=== PATIENT | female | born 1985 | race Caucasian/White ===

== ENCOUNTER 2024-07-01 12:55 | Outpatient (AMB) | payer OTHER, SELFPAY ==
--- NOTE | 2024-07-01 13:08 | A.OFFPC_ITS ---
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 Intake Note: New patient visit Medical Technologist Chief Required: No Allergies No Known Allergies Allergy (Verified 07/01/24 13:09) Tobacco use date assessed: 07/01/24 Dental Screening Dental Screen Date: 07/01/24 Did you have a dental visit in the last 12 months?: Yes Did you have a dental problem in the last 6 months where you did not have access to dental care?: No Was dental information given to patient?: Patient has dentist HPI HPI Comments History of Present Illness Details The patient is a 40 year old female with a past medical history of thyroid nodule, head/neck LN presenting to [facility] care. Has not seen primary care in years. Previously with Dr Clark in [place]. Has noticed some lymphadenopathy in the neck-both anterior and posterior for the past year. Saw ENT out of pocket in [place]. Had MRI neck. +thyroid nodule. Thyroid biopsy. 3.5 cm nodule. Benign. The lymph nodes were not visible/benign. TSH and TPO ab, CBC, CMP were ok. She has had increasingly irregular menses. Says LH, estradiol were normal. Needs bottle filler. Also notes increased acne, hot flashes. Headaches infrequent. Haven't changed. +allergies. Had left dental implant. Joint pain in the hands. ?Lyme IgM was + and was treated with 3 weeks of doxycycline. IgG normal. Needs referral to bottle filler. Mammogram 01/2024 ROS see HPI PHYSICAL EXAM: GENERAL: Alert and oriented x 3. NAD EYES: EOMI. Anicteric. HENT: Moist mucous membranes. +clear middle ear effusions b/l. palpable posterior cervical right nodes. Some scalp dryness not irritated. No nevi etc noted on the head. Scattered nevi upper back. Heterogenous thyroid. LUNGS: Clear to auscultation bilaterally. CARDIOVASCULAR: Regular rate and rhythm. ABDOMEN: Soft, non-tender +bs EXTREMITIES: No edema. Non-tender. SKIN: No rashes or lesions. Warm. NEUROLOGIC: No focal neurological deficits. CN II-XII grossly intact PSYCHIATRIC: Cooperative. Appropriate mood and affect [facility] Surgical History Hx of LASIK History of augmentation mammoplasty H/O wisdom tooth extraction Family History Father Hyperlipidemia HTN (hypertension) Paternal Grandmother Macular degeneration Diabetes Paternal Grandfather Diabetes Other Substance abuse Social History Housing: House Alcohol intake: current Patient Tobacco Use Status: Never used Tobacco e-Cigarette/Vaping Use: Never Used service: No Current occupational status: employed Current occupation: Physician internet marketing assistant Current occupational exposures/hazards: No Cognitive needs: No Hearing needs: No Vision needs: No Questionnaire PHQ-9 Over the last 2 weeks, how often have you been bothered by any of the following problems? 1. Little interest or pleasure in doing things: not at all 2. Feeling down, depressed, or hopeless: not at all 3. Trouble falling or staying asleep, or sleeping too much: not at all 4. Feeling tired or having little energy: more than half the days 5. Poor appetite or overeating: not at all 6. Feeling bad about yourself - or that you are a failure or have let yourself or your family down: not at all 7. Trouble concentrating on things, such as reading the newspaper or watching television: not at all 8. Moving or speaking so slowly that other people could have noticed. Or the opposite - being so fidgety or restless that you have been moving around a lot more than usual: not at all 9. Thoughts that you would be better off or of hurting yourself in some way: not at all Total score: 2 Depression Screening Interpretation: Negative Depression Screening Done: Yes 25560 - PHQ-9 Billing: Yes Source: Developed by Drs. Jean Menendez, Pearl Kirkland, Hector Kenny and colleagues, with an educational aquilino from [employer]. Thrive Questionnaire Date Thrive assessed: 06/28/24 I am a: Patient What is your living situation today?: I have a steady place to live Within the past 12 months, did the food you bought not last and you didn't have the money to get more?: Never true Within the past 12 months, did you worry whether your food would run out before you got money to buy more?: Never true Do you have trouble paying for medicines?: No Do you have trouble getting transportation to medical appointments?: No Do you have trouble paying your heating and electricity bill?: No Do you have trouble taking care of your child, family member or friend?: No Do you have trouble with day-to-day activities such as bathing, preparing meals, shopping, managing finances, etc.?: No Are you currently unemployed and looking for a job?: No Are you interested in more education?: No Please select the resources that you would like help with: None Currently or been in a relationship where the following occur: No concerns reported THRIVE Score: 0 AUDIT C Alcohol Use Questionnaire (AUDIT-C) 1. How often do you have a drink containing alcohol?: Monthly or less 2. How many drinks containing alcohol do you have on a typical day when you are drinking?: 1 or 2 3. How often do you have six or more drinks on one occasion?: Never Total Score: 1 BENTON-7 AMB Questionnaire BENTON-7 Date BENTON - 7 assessed: 07/01/24 Feeling nervous, anxious, or on edge: 0 = Not at all Not being able to stop or control worryin = Not at all Worrying too much about different things: 0 = Not at all Trouble relaxin = Not at all Being so restless that it is hard to sit still: 0 = Not at all Becoming easily annoyed or irritable: 0 = Not at all Feeling afraid as if something awful might happen: 0 = Not at all Total BENTON-7 score (0-4 normal; 5-9 mild; 10-14 moderate; 15-21 severe): 0 Source: Developed by Drs. Jean Menendez, Pearl Kirkland, Hector Kenny and colleagues, with an educational aquilino from [employer]. BENTON-7 Assessment Billing BENTON-7 Assessment Tool: BENTON-7 Assessment 11909 Physical exam (Primary Care) Vital Signs: Last Vital Signs Pulse 71 07/01/24 13:18 Resp 12 07/01/24 13:18 BP 108/74 07/01/24 13:18 Pulse Ox 98 07/01/24 13:18 Oxygen Delivery Method Room Air 07/01/24 13:18 BMI result Body Mass Index 24.5 Tobacco/Smoking Status: Tobacco use Status Tobacco use date assessed 07/01/24 07/01/24 13:21 Patient Tobacco Use Status Never used Tobacco 07/01/24 13:27 e-Cigarette/Vaping Use Never Used 07/01/24 13:21 PHQ-9: PHQ-9 Score PHQ-9: Total score 2 07/01/24 13:27 Depression Screening Interpretation: Negative Thrive Assessment: Date of Thrive Assessment Date Thrive assessed 06/28/24 07/01/24 13:21 Currently or been in a relationship where the following occur: No concerns reported Coding Level of Care Code New Pt Level 4 (88133) Complex EM visit Add On G2211 Diagnoses Head and neck lymphadenopathy R59.1 Hormone disturbance E34.9 Establishing care with new doctor, encounter for Z76.89 Additional Codes BENTON-7 Assessment Billing - BENTON-7 Assessment Tool: BENTON-7 Assessment 90246 ([id number]) PHQ-9 - 32061 - PHQ-9 Billing: Yes ([id number]) Assessment & Plan Assessment & Plan (1) Head and neck lymphadenopathy: Code(s): R59.1 - Generalized enlarged lymph nodes Category: Medical Plan: Repeat u/s. referral to ENT. Will refer to endocrine given constellation of symptoms and patient desire to get further testing. (2) Hormone disturbance: Code(s): E34.9 - Endocrine disorder, unspecified Category: Medical Plan: see above (3) Establishing care with new doctor, encounter for: Code(s): Z76.89 - Persons encountering health services in other specified circumstances Plan: Past medical, surgical, social and family history reviewed. 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
[2024-07-01 13:18] VITALS: BP 108/74; PULSE 71; RESP 12; O2SAT 98; BMI 24.5
== END 2024-07-01 13:59 | disposition home or self-care (01) ==
PROVIDERS: Visit Provider Internal Medicine
DX: R59.1 Generalized enlarged lymph nodes (principal); E34.9 Endocrine disorder, unspecified; Z76.89 Persons encountering health services in other specified circumstances

== ENCOUNTER → 2024-07-01 12:55 | Outpatient (BNVA) | payer OTHER, SELFPAY | PROVIDERS: Visit Provider Internal Medicine | DX: Z76.89 Persons encountering health services in other specified circumstances (principal); R59.1 Generalized enlarged lymph nodes; E34.9 Endocrine disorder, unspecified; E04.1 Nontoxic single thyroid nodule | CPT/HCPCS: 96127 ==

== ENCOUNTER 2024-07-17 15:23 | Outpatient (REF) | payer OTHER, SELFPAY ==
--- NOTE | ~2024-07-17 | US_ITS ---
EXAMINATION: US THYROID CLINICAL INFORMATION: Nontoxic single thyroid nodule. COMPARISON: None available. TECHNIQUE: Linear transducer grayscale and color Doppler examination with attention to the region of the thyroid. FINDINGS: SIZE: Measurements of the thyroid lobes and nodules are given in sagittal, anteroposterior and transverse dimensions respectively. Right Thyroid Lobe: 6.0 x 2.9 x 2.4 cm, volume 22 mL. Parenchyma: The gland echotexture is homogeneous. Thyroid vascularity is normal. Left Thyroid Lobe: 5.2 x 2.1 x 2.2 cm, volume 13 mL. Parenchyma: The gland echotexture is homogeneous. Thyroid vascularity is normal. Isthmus: 0.13 cm in maximum AP dimension. Estimated total number of nodules greater than or equal to 1 cm: 2. 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 Location: Right mid/inferior. Size: 3.3 x 3.0 x 2.5 cm, volume 13 mL. Nodule characteristics: Composition: Cystic(0). Echogenicity: Cannot be determined (1). Shape: Taller than wide (3). Margins: Smooth (0). Echogenic Foci: None (0). ACR TI-RADS total points: 3 ACR TI-RADS category: 3 2. Location: Left superior. Size: 0.6 x 0.4 x 0.8 cm, volume 0.105 mL. Nodule characteristics: Composition: Solid (2). Echogenicity: Hypoechoic (2). Shape: Not taller than wide (0). Margins: Ill-defined (0). Echogenic Foci: None (0). ACR TI-RADS total points: 4 ACR TI-RADS category: 4 3. Location: Left mid/inferior. Size: 2.8 x 1.8 x 2.1 cm, volume 5.4 mL. Nodule characteristics: Composition: Solid/almost completely solid (2). Echogenicity: Isoechoic (1). Shape: Not taller than wide (0). Margins: Ill-defined (0). Echogenic Foci: Macrocalcifications (1). ACR TI-RADS total points: 4 ACR TI-RADS category: 4 NODES: There are no abnormal cervical lymph nodes present. US/US thyroid IMPRESSION: 1. There is a 3.3 cm TR-category 3 cystic nodule right mid to inferior gland. Follow-up recommended. 2. There is a 0.8 cm TR-category 4 nodule in the left upper gland. No follow-up recommended. 3. There is a 2.8 cm TR-category 4 nodule left mid inferior gland. FNA recommended if not already performed. 4. Remainder of the thyroid gland is normal in echotexture. ACR TI-RADS RECOMMENDATION REFERENCE: Ultrasound-guided fine-needle aspiration, followup ultrasound, no further follow up. * TR1 (0 point) and TR2 (2 points): No FNA or follow up. * TR3 (3 points): FNA if more than or equal to 2.5 cm in maximum dimension, followup ultrasound in 1, 3 and 5 years if 1.5 to 2.4 cm in maximum dimension. * TR4 (4-6 points): FNA if more than or equal to 1.5 cm in maximum dimension, followup ultrasound in 1, 2, 3 and 5 years if 1 to 1.4 cm in maximum dimension. * TR5 (more than or equal to 7 points): FNA if more than or equal to 1 cm in maximum dimension, followup ultrasound every year for 5 years if 0.5 to 0.9 cm in maximum dimension. * TR3, TR4 or TR5 nodules that are below the size threshold for followup receive no follow up. Electronically signed by: Phill Sky MD 07/22/2024 12:04 PM MATT CROW
== END 2024-07-17 15:24 | disposition home or self-care (01) ==
LOC: HO.US 15:23
PROVIDERS: PCP Internal Medicine; Visit Provider Internal Medicine
DX: E04.1 Nontoxic single thyroid nodule (principal); R59.1 Generalized enlarged lymph nodes
CPT/HCPCS: 76536

== ENCOUNTER → 2024-07-17 15:28 | Outpatient (BNV) | payer OTHER, SELFPAY | PROVIDERS: PCP Internal Medicine; Visit Provider Radiology Diagnostic Radiology | DX: E04.1 Nontoxic single thyroid nodule (principal) | CPT/HCPCS: 76536 ==

== ENCOUNTER 2024-07-22 13:07 | Outpatient (AMB) | payer OTHER, SELFPAY ==
[2024-07-22 13:25] VITALS: BP 110/78; PULSE 60; BMI 25.3
--- NOTE | 2024-07-22 13:25 | A.OFFVIS_ITS ---
Vital Signs 3 07/22/24 13:25 Height 5 ft 7 in Weight 161 lb 9.581 oz BMI 25.3 BP 110/78 Blood Pressure Location Lt brachial Position Sitting Pulse 60 Pulse Source Pulse Oximeter Intake Visit Reasons: Endocrine disorder, unspecified Intake Note: Patient present today for Endocrine disorder, unspecified. Research Phlebotomist Required: No Accompanied by: Self / Same As Patient Allergies No Known Allergies Allergy (Verified 07/22/24 13:28) Medication List - Last Reconciled 07/22/24 by Sonya Adorno MD acetaminophen (Tylenol) 325 mg PO QID PRN multivitamin 1 tab PO DAILY naproxen sodium (Flanax (naproxen)) 220 mg PO BID PRN HPI Comments Details: 39-year-old female here today for initial evaluation of irregular menstruation and also noted to have multinodular goiter. presents with no complaints of irregular periods and hair loss. No history of HTN, hyperlipidemia, prediabetes. PCOS is described as mild, moderate or severe. Menarche: 12 years and then didnt have one for 1.5 years Has always had irregular periods Preganancies : zero Sexully active with man, was on the estrogen patch a year and a half ago. Uses condoms for protection. Has used OCps before in the past which would regulate period. LMP : 08/18/2023 Before that around 08/16/2023 Was getting them every 30 days now been skipping months . First day heavier period now. Reporting intermenstrual spotting. No dysperenunia, no post coital bleeding, no fevers , no abd pain Having hot flashes over the summer 2023, subsided now. Increased acne on chin, chest and back of neck ,on tretinoin gel better controlled , being managed with PCP. Laser annette removal on arms, mustache waxed. No increased hair on belly or nipples . Hair loss on temples and diffusely thinner. Diet: Eats more protein 115 g of protein per day Exercise: Strength training 4-5 days a week, plus running a lot now. Cosmetic therapies: Laser hair removal, waxing, threading, plucking MNG Patient describes that she has been having postauricular lymphadenopathy in the right side for the past 1 year sometime in 2022. She was evaluated by ENT. Imaging did not show anything around posterior auricular lymphadenopathy but led to discovery of thyroid nodules. MRI soft tissue face/neck with and without contrast 08/17/2023 showed 2.5 X 2.7 X 3.3 cm lobulated lesion with heterogenous hyperintense T1 and T2 signals in the right thyroid lobe. The left thyroid lobe showed heterogenous signals on heterogenous enhancement containing multiple subcentimeter nodules. 09/19/2023: Ultrasound of the thyroid showed a mixed solid cystic isoechoic nodule measuring 3.4 cm in the right lower lobe, labeled as TR 2. Another 2.6 cm predominantly solid isoechoic nodule in the left mid lobe, labeled as TR 3. 10/05/2023: FNA of the left thyroid nodule with benign cytology Grahn category 2. 07/17/2024: Repeat thyroid ultrasound shows again right mid/inferior 3.3 cm cystic lesion, left superior 0.8 cm solid, hypoechoic TR 4 nodule and a left mid/inferior 2.8 cm TR 4 category solid, isoechoic nodule with macrocalcifications. Patient currently denies heat or cold intolerance, diarrhea or constipation, hair loss, palpitation, anxiety, weight changes, mood changes, low energy, changes in appearance of eyes or vision changes, tremors, increased diaphoresis or dry skin. ? Patient denies any difficulty swallowing, pain on swallowing or voice changes or difficulty breathing. Patient denies any history of childhood neck radiation. Denies having ever used lithium, amiodarone or biotin supplements. Patient denies any family history of thyroid cancer or thyroid disease. Review of systems Constitutional: no fevers, chills or weight loss HEENT: no changes in vision Cardiac: No chest pain, discomfort or palpitations. Pulmonary: No SOB GI:No abdominal pain, no nausea or vomiting, no anorexia, no blood in stool : no burning micturition, dysuria or increase in urinary frequency Physical exam General: sitting comfortably in no acute distress HEENT: normocephalic/atraumatic, palpable 0.5 cm posterior auricular right-sided lymphadenopathy Neck: supple, symmetrical, palpable 2 cm left and right nodules , no dorsocervical or supraclavicular fat pads Cardiac: normal heart sounds Pulm: normal breath sounds B/L, no added breath sounds Abd: not distended, no tenderness Extremities: no edema, no signs of myxedema US THYROID 07/17/24 CLINICAL INFORMATION: Nontoxic single thyroid nodule. COMPARISON: None available. TECHNIQUE: Linear transducer grayscale and color Doppler examination with attention to the region of the thyroid. FINDINGS: SIZE: Measurements of the thyroid lobes and nodules are given in sagittal, anteroposterior and transverse dimensions respectively. Right Thyroid Lobe: 6.0 x 2.9 x 2.4 cm, volume 22 mL. Parenchyma: The gland echotexture is homogeneous. Thyroid vascularity is normal. Left Thyroid Lobe: 5.2 x 2.1 x 2.2 cm, volume 13 mL. Parenchyma: The gland echotexture is homogeneous. Thyroid vascularity is normal. Isthmus: 0.13 cm in maximum AP dimension. Estimated total number of nodules greater than or equal to 1 cm: 2. Blint[place] Roller nodules are described as follows: 1. Location: Right mid/inferior. Size: 3.3 x 3.0 x 2.5 cm, volume 13 mL. Nodule characteristics: Composition: Cystic(0). Echogenicity: Cannot be determined (1). Shape: Taller than wide (3). Margins: Smooth (0). Echogenic Foci: None (0). ACR TI-RADS total points: 3 ACR TI-RADS category: 3 2. Location: Left superior. Size: 0.6 x 0.4 x 0.8 cm, volume 0.105 mL. Nodule characteristics: Composition: Solid (2). Echogenicity: Hypoechoic (2). Shape: Not taller than wide (0). Margins: Ill-defined (0). Echogenic Foci: None (0). ACR TI-RADS total points: 4 ACR TI-RADS category: 4 3. Location: Left mid/inferior. Size: 2.8 x 1.8 x 2.1 cm, volume 5.4 mL. Nodule characteristics: Composition: Solid/almost completely solid (2). Echogenicity: Isoechoic (1). Shape: Not taller than wide (0). Margins: Ill-defined (0). Echogenic Foci: Macrocalcifications (1). ACR TI-RADS total points: 4 ACR TI-RADS category: 4 NODES: There are no abnormal cervical lymph nodes present. US/US thyroid IMPRESSION: 1. There is a 3.3 cm TR-category 3 cystic nodule right mid to inferior gland. Follow-up recommended. 2. There is a 0.8 cm TR-category 4 nodule in the left upper gland. No follow-up recommended. 3. There is a 2.8 cm TR-category 4 nodule left mid inferior gland. FNA recommended if not already performed. 4. Remainder of the thyroid gland is normal in echotexture. [facility] Medical History (Updated 07/22/24 @ 14:14 by Sonya Adorno MD) Multinodular goiter Surgical History Hx of LASIK History of augmentation mammoplasty H/O wisdom tooth extraction Family History Father Hyperlipidemia HTN (hypertension) Paternal Grandmother Macular degeneration Diabetes Paternal Grandfather Diabetes Other Substance abuse Social History Housing: House Alcohol intake: current Patient Tobacco Use Status: Never used Tobacco e-Cigarette/Vaping Use: Never Used service: No Current occupational status: employed Current occupation: Physician certified physician assistant Current occupational exposures/hazards: No Cognitive needs: No Hearing needs: No Vision needs: No Assessment & Plan Assessment & Plan (1) Irregular menses: Code(s): N92.6 - Irregular menstruation, unspecified Category: Medical Plan: 39-year-old female who is coming in today with concerns about irregular menstrual cycles with intermenstrual spotting, along with her loss. She has had irregular menstrual periods for all of her life, says she briefly went on oral contraceptive pills as well has had an implant at some point, which would regulate her periods however then she had more regular periods over the last few years so she has been off these however recently has had worsening of menstrual cycles. She has been having your period at least every other month or every 2 months. She has also noticed some intermenstrual spotting which is new. She is pending an appointment for the OBGYN. No recent ultrasound done. I will defer that to OBGYN. She has mild hirsutism though she is not bothered by it and uses cosmetic measures such as laser therapy. She also waxes her missed. She does have bothersome acne however currently well-controlled on tretinoin therapy. She does not have any history of diabetes or hyperlipidemia, blood pressure is well-controlled, we will check an A1c and lipid panel. She most likely has lean PCOS. Since she is having a period every other month when every 2 months at least, she does not necessarily need to regulate cycles further. I did discuss importance of having a period at least every 3 months and need for going on OCP if she does not. I reviewed with the patient the implications of polycystic ovarian syndrome in terms of 1) reproductive health (increased risk of infertity, miscarriage), 2) metabolic issues (type 2 diabetes, hypertension, dyslipidemia, cardiovascular disease) and 3) hyperandrogenism (acne, hirsuitism, male pattern hair loss). We reviewed that weight loss in overweight woman can help improve these morbidities, but often woman with PCOS do need further assistance with fertility using metformin plus clomiphene or letrazole. She is not interested in at this time. We discussed lifestyle modification in detail and she is already very good about exercising regularly. We discussed 25 g of fiber per day as well as 1 g per kg protein per day. Patient maintains a high protein intake. I will obtain other blood work to rule out CAH/adrenal/ovarian tumors. Plan: -obtain testosterone, estradiol, FSH, LH, 17 hydroxyprogesterone, DHEA-S, androstenedione levels -establish care with OBGYN -follow up with me in 3 weeks to discuss results (2) Multinodular goiter: Code(s): E04.2 - Nontoxic multinodular goiter Category: Medical Plan: 39-year-old female with no family history of thyroid cancer, with no personal history of head or neck radiation who had complaints of postauricular lymphadenopathy since 2022 leading to imaging of her neck which led to discovery of bilateral thyroid nodules. MRI soft tissue face/neck with and without contrast 08/17/2023 showed 2.5 X 2.7 X 3.3 cm lobulated lesion with heterogenous hyperintense T1 and T2 signals in the right thyroid lobe. The left thyroid lobe showed heterogenous signals on heterogenous enhancement containing multiple subcentimeter nodules. 09/19/2023: Ultrasound of the thyroid showed a mixed solid cystic isoechoic nodule measuring 3.4 cm in the right lower lobe, labeled as TR 2. Another 2.6 cm predominantly solid isoechoic nodule in the left mid lobe, labeled as TR 3. 10/05/2023: FNA of the left thyroid nodule with benign cytology Grahn category 2. 07/17/2024: Repeat thyroid ultrasound shows again right mid/inferior 3.3 cm cystic lesion, left superior 0.8 cm solid, hypoechoic TR 4 nodule and a left mid/inferior 2.8 cm TR 4 category solid, isoechoic nodule with macrocalcifications. I explained that it is common to have thyroid nodules. About 95% of the time these nodules are benign. However if the nodule is > 1 cm in size or suspicious on ultrasound then a fine need aspiration biopsy is recommended. I reviewed the images of her most recent ultrasound in July 2024 myself, in the right mid/inferior 3 cm cystic lesion does not meet criteria for FNA. The left mid/inferior 2.8 cm lesion has been biopsied in September 2023 which was benign. Given this is labeled as TR 4, would need follow up in 1 year. Plan: -ordered repeat thyroid ultrasound to be done in July 2025 - follow up with the ENT with regards to the postauricular lymphadenopathy Plan I spent 45 minutes in reviewing the record, seeing the patient and documenting in the medical record. Orders: Orders 2 Adrenocorticotropic Hormone Today N92.6 - Irregular menstruation, unspecified Androstenedione Today N92.6 - Irregular menstruation, unspecified Prolactin Today L68.0 - Hirsutism, N92.6 - Irregular menstruation, unspecified Testosterone, Free/Total Today L68.0 - Hirsutism, N92.6 - Irregular menstruation, unspecified Thyroid Stimulating Hormone Today L68.0 - Hirsutism, N92.6 - Irregular menstruation, unspecified Follicle Stimulating Hormone Today N92.6 - Irregular menstruation, unspecified Lipid Panel Today N92.6 - Irregular menstruation, unspecified Hemoglobin A1c Today N92.6 - Irregular menstruation, unspecified US thyroid 1 Year E04.1 - Nontoxic single thyroid nodule Cortisol Random Today N92.6 - Irregular menstruation, unspecified DHEA Sulfate Today N92.6 - Irregular menstruation, unspecified 17 Hydroxyprogesterone Today L68.0 - Hirsutism, N92.6 - Irregular menstruation, unspecified Estradiol Ultra Sensitive Today N92.6 - Irregular menstruation, unspecified Lutenizing Hormone Today N92.6 - Irregular menstruation, unspecified Patient Instructions: Do blood work Follow up in 3 weeks to discuss results Next thyroid ultrasound will be due Jul 2025 Coding Level of Care Code New Pt Level 4 (25890) Diagnoses Irregular menses N92.6 Multinodular goiter E04.2 Time Spent (min) 45
== END 2024-07-22 14:12 | disposition home or self-care (01) ==
PROVIDERS: Visit Provider Student in an Organized Health Care Education/Training Program
DX: N92.6 Irregular menstruation, unspecified (principal); E04.2 Nontoxic multinodular goiter
CPT/HCPCS: 99204

== ENCOUNTER 2024-07-22 13:07 | Outpatient (REF) | payer OTHER, SELFPAY | END 2024-07-22 13:08 | disposition home or self-care (01) | LOC: HO.LAB 13:07 | PROVIDERS: PCP Internal Medicine; Visit Provider Student in an Organized Health Care Education/Training Program | DX: Z13.89 Encounter for screening for other disorder (principal) ==

== ENCOUNTER 2024-07-23 09:38 | Outpatient (REF) | payer OTHER, SELFPAY ==
[2024-07-23 10:21] LABS: Estimated Average Glucose 100 mg/dL; Hemoglobin A1C 100.2574 umol/L; Hemoglobin A1c % 5.1 % (<6.0); Total Hemoglobin (HGBA1C) 3160.4261 umol/L
[2024-07-23 10:54] LABS: Cortisol Random 8.2 ug/dL
[2024-07-23 10:55] LABS: Cholesterol 216 mg/dL (<200); HDL Cholesterol 69 mg/dL (>40); LDL Cholesterol Calculated 126 mg/dL (<100); Triglycerides 107 mg/dL (<150)
[2024-07-23 10:58] LABS: Thyroid Stimulating Hormone 1.37 uIU/mL (0.32-4.0)
[2024-07-24 11:03] LABS: DHEA Sulfate 64 mcg/dL (15-205)
[2024-07-24 12:29] LABS: Follicle Stimulating Hormone 3.5 mIU/mL; Lutenizing Hormone 6.6 mIU/mL; Prolactin 13.4 ng/mL
[2024-07-28 08:13] LABS: Adrenocorticotropic Hormone 8 pg/mL (6-50)
[2024-07-29 18:14] LABS: Testosterone, Free 2.8 pg/mL (0.1-6.4); Testosterone, Total 24 ng/dL (2-45)
[2024-07-29 23:49] LABS: Estradiol Ultra Sensitive 124 pg/mL
[2024-07-30 17:24] LABS: Androstenedione 74 ng/dL
[2024-07-31 13:19] LABS: VITAMIN D (1,25 OH) D3 69 pg/mL; Vit D (1,25-Dihydroxy) Total 69 pg/mL (18-72); Vitamin D (1,25 OH) D2 <8 pg/mL
== END 2024-07-23 09:39 | disposition home or self-care (01) ==
LOC: HO.LAB 09:38
PROVIDERS: PCP Internal Medicine; Visit Provider Student in an Organized Health Care Education/Training Program
DX: L68.0 Hirsutism (principal); N92.6 Irregular menstruation, unspecified; R79.89 Other specified abnormal findings of blood chemistry
CPT/HCPCS: 36415; 80061; 82024; 82157; 82533; 82627; 82652; 82670; 83001; 83002; 83036; 83498; 84146; 84402; 84403; 84443

== ENCOUNTER 2024-08-14 12:51 | Outpatient (AMB) | payer OTHER, SELFPAY ==
[2024-08-14 12:55] VITALS: BP 102/72; PULSE 75; BMI 24.1
--- NOTE | 2024-08-14 12:55 | MHC.OFFVIS ---
Vital Signs 08/14/24 12:55 Height 5 ft 7 in Weight 153 lb 10.595 oz BMI 24.1 BP 102/72 Blood Pressure Location Lt brachial Position Sitting Pulse 75 Pulse Source Pulse Oximeter Intake Visit Reasons: Endocrine disorder, unspecified Intake Note: Patient present today for Endocrine disorder, unspecified office visit. Geophysical Drafter Required: No Accompanied by: Self / Same As Patient Allergies No Known Allergies Allergy (Verified 08/14/24 12:59) HPI Comments Details: 39-year-old female here today for follow up of irregular menstruation and multinodular goiter. HPI PCOS is described as mild Menarche: 12 years and then didnt have one for 1.5 years Has always had irregular periods Preganancies : zero Sexully active with man, was on the estrogen patch a year and a half ago. Uses condoms for protection. Has used OCps before in the past which would regulate period. LMP : 07/07/2024 Before that around 05/07/2024 Was getting them every 30 days now been skipping months . First day heavier period now. Reporting intermenstrual spotting. No dysperenunia, no post coital bleeding, no fevers , no abd pain Having hot flashes over the summer 2023, subsided now. Increased acne on chin, chest and back of neck ,on tretinoin gel better controlled , being managed with PCP. Laser hair removal on arms, mustache waxed. No increased hair on belly or nipples . Hair loss on temples and diffusely thinner. Diet: Eats more protein 115 g of protein per day Exercise: Strength training 4-5 days a week, plus running a lot now. Cosmetic therapies: Laser hair removal, waxing, threading, plucking Interval history Has appointment with OBgyn on Monday Lab work 07/23/2024 showed normal A1c, elevated LDL and total cholesterol levels, normal testosterone, estradiol, FSH, LH, DHEA-S, cortisol, 17 hydroxyprogesterone and androstenedione levels. MNG Patient describes that she has been having postauricular lymphadenopathy in the right side for the past 1 year sometime in 2022. She was evaluated by ENT. Imaging did not show anything around posterior auricular lymphadenopathy but led to discovery of thyroid nodules. MRI soft tissue face/neck with and without contrast 08/17/2023 showed 2.5 X 2.7 X 3.3 cm lobulated lesion with heterogenous hyperintense T1 and T2 signals in the right thyroid lobe. The left thyroid lobe showed heterogenous signals on heterogenous enhancement containing multiple subcentimeter nodules. 09/19/2023: Ultrasound of the thyroid showed a mixed solid cystic isoechoic nodule measuring 3.4 cm in the right lower lobe, labeled as TR 2. Another 2.6 cm predominantly solid isoechoic nodule in the left mid lobe, labeled as TR 3. 10/05/2023: FNA of the left thyroid nodule with benign cytology [place] category 2. 07/17/2024: Repeat thyroid ultrasound shows again right mid/inferior 3.3 cm cystic lesion, left superior 0.8 cm solid, hypoechoic TR 4 nodule and a left mid/inferior 2.8 cm TR 4 category solid, isoechoic nodule with macrocalcifications. Patient currently denies heat or cold intolerance, diarrhea or constipation, hair loss, palpitation, anxiety, weight changes, mood changes, low energy, changes in appearance of eyes or vision changes, tremors, increased diaphoresis or dry skin. ? Patient denies any difficulty swallowing, pain on swallowing or voice changes or difficulty breathing. Patient denies any history of childhood neck radiation. Denies having ever used lithium, amiodarone or biotin supplements. Patient denies any family history of thyroid cancer or thyroid disease. Review of systems Constitutional: no fevers, chills or weight loss HEENT: no changes in vision Cardiac: No chest pain, discomfort or palpitations. Pulmonary: No SOB GI:No abdominal pain, no nausea or vomiting, no anorexia, no blood in stool : no burning micturition, dysuria or increase in urinary frequency Physical exam General: sitting comfortably in no acute distress HEENT: normocephalic/atraumatic, palpable 0.5 cm posterior auricular right-sided lymphadenopathy Neck: supple, symmetrical, palpable 2 cm left and right nodules , no dorsocervical or supraclavicular fat pads Cardiac: normal heart sounds Pulm: normal breath sounds B/L, no added breath sounds Abd: not distended, no tenderness Extremities: no edema, no signs of myxedema US THYROID 07/17/24 CLINICAL INFORMATION: Nontoxic single thyroid nodule. COMPARISON: None available. TECHNIQUE: Linear transducer grayscale and color Doppler examination with attention to the region of the thyroid. FINDINGS: SIZE: Measurements of the thyroid lobes and nodules are given in sagittal, anteroposterior and transverse dimensions respectively. Right Thyroid Lobe: 6.0 x 2.9 x 2.4 cm, volume 22 mL. Parenchyma: The gland echotexture is homogeneous. Thyroid vascularity is normal. Left Thyroid Lobe: 5.2 x 2.1 x 2.2 cm, volume 13 mL. Parenchyma: The gland echotexture is homogeneous. Thyroid vascularity is normal. Isthmus: 0.13 cm in maximum AP dimension. Estimated total number of nodules greater than or equal to 1 cm: 2. [employer] nodules are described as follows: 1. Location: Right mid/inferior. Size: 3.3 x 3.0 x 2.5 cm, volume 13 mL. Nodule characteristics: Composition: Cystic(0). Echogenicity: Cannot be determined (1). Shape: Taller than wide (3). Margins: Smooth (0). Echogenic Foci: None (0). ACR TI-RADS total points: 3 ACR TI-RADS category: 3 2. Location: Left superior. Size: 0.6 x 0.4 x 0.8 cm, volume 0.105 mL. Nodule characteristics: Composition: Solid (2). Echogenicity: Hypoechoic (2). Shape: Not taller than wide (0). Margins: Ill-defined (0). Echogenic Foci: None (0). ACR TI-RADS total points: 4 ACR TI-RADS category: 4 3. Location: Left mid/inferior. Size: 2.8 x 1.8 x 2.1 cm, volume 5.4 mL. Nodule characteristics: Composition: Solid/almost completely solid (2). Echogenicity: Isoechoic (1). Shape: Not taller than wide (0). Margins: Ill-defined (0). Echogenic Foci: Macrocalcifications (1). ACR TI-RADS total points: 4 ACR TI-RADS category: 4 NODES: There are no abnormal cervical lymph nodes present. US/US thyroid IMPRESSION: 1. There is a 3.3 cm TR-category 3 cystic nodule right mid to inferior gland. Follow-up recommended. 2. There is a 0.8 cm TR-category 4 nodule in the left upper gland. No follow-up recommended. 3. There is a 2.8 cm TR-category 4 nodule left mid inferior gland. FNA recommended if not already performed. 4. Remainder of the thyroid gland is normal in echotexture. Laboratory Tests 07/23/24 09:56 Estimat Average Glucose 100 Hemoglobin A1c % 5.1 Triglycerides 107 Cholesterol 216 H LDL Cholesterol, Calc 126 H HDL Cholesterol 69 TSH 1.37 Estradiol Ultra LCMSMS 124 FSH 3.5 Luteinizing Hormone 6.6 Prolactin 13.4 Total Testosterone 24 Fr Testosterone Dialys 2.8 Androstenedione 74 DHEA Sulfate 64 Random Cortisol 8.2 ACTH 8 17-Hydroxyprogesterone 162 PFSH Medical History (Updated 07/25/24 @ 15:10 by Liz Child MD) Multinodular goiter Surgical History Hx of LASIK History of augmentation mammoplasty H/O wisdom tooth extraction Family History Father Hyperlipidemia HTN (hypertension) Paternal Grandmother Macular degeneration Diabetes Paternal Grandfather Diabetes Other Substance abuse Social History Housing: House Alcohol intake: current Patient Tobacco Use Status: Never used Tobacco e-Cigarette/Vaping Use: Never Used service: No Current occupational status: employed Current occupation: Physician certified nursing assistant Current occupational exposures/hazards: No Cognitive needs: No Hearing needs: No Vision needs: No Physical Exam Vital Signs: Last Vital Signs Pulse 75 08/14/24 12:55 BP 102/72 08/14/24 12:55 BMI result Body Mass Index 24.1 Assessment & Plan Assessment & Plan (1) Irregular menses: Code(s): N92.6 - Irregular menstruation, unspecified Category: Medical Plan: 39-year-old female who is coming in today with concerns about irregular menstrual cycles with intermenstrual spotting, along with her loss. She has had irregular menstrual periods for all of her life, says she briefly went on oral contraceptive pills as well has had an implant at some point, which would regulate her periods however then she had more regular periods over the last few years so she has been off these however recently has had worsening of menstrual cycles. She has been having your period at least every other month or every 2 months. She has also noticed some intermenstrual spotting which is new. She is pending an appointment for the OBGYN. No recent ultrasound done. I will defer that to OBGYN. She has mild hirsutism though she is not bothered by it and uses cosmetic measures such as laser therapy. She also waxes her missed. She does have bothersome acne however currently well-controlled on tretinoin therapy. She does not have any history of diabetes o, labs from 07/23/2024 shows hyperlipidemia, blood pressure is well-controlled, I would classify her as having lean PCOS. Since she is having a period every other month when every 2 months at least, she does not necessarily need to regulate cycles further. I did discuss importance of having a period at least every 3 months and need for going on OCP if she does not. I reviewed with the patient the implications of polycystic ovarian syndrome in terms of 1) reproductive health (increased risk of infertity, miscarriage), 2) metabolic issues (type 2 diabetes, hypertension, dyslipidemia, cardiovascular disease) and 3) hyperandrogenism (acne, hirsuitism, male pattern hair loss). We reviewed that weight loss in overweight woman can help improve these morbidities, but often woman with PCOS do need further assistance with fertility using metformin plus clomiphene or letrazole. She is not interested in at this time. We discussed lifestyle modification in detail and she is already very good about exercising regularly. We discussed 25 g of fiber per day as well as 1 g per kg protein per day. Patient maintains a high protein intake. Labs from 07/23/2024 ruled out CAH/adrenal/ovarian tumors based on normal 17 hydroxyprogesterone, testosterone, estradiol, DHEA-S, androstenedione levels. Plan: -establish care with OBGYN -Lifestyle modification as mentioned above discussed (2) Multinodular goiter: Code(s): E04.2 - Nontoxic multinodular goiter Category: Medical Plan: 39-year-old female with no family history of thyroid cancer, with no personal history of head or neck radiation who had complaints of postauricular lymphadenopathy since 2022 leading to imaging of her neck which led to discovery of bilateral thyroid nodules. MRI soft tissue face/neck with and without contrast 08/17/2023 showed 2.5 X 2.7 X 3.3 cm lobulated lesion with heterogenous hyperintense T1 and T2 signals in the right thyroid lobe. The left thyroid lobe showed heterogenous signals on heterogenous enhancement containing multiple subcentimeter nodules. 09/19/2023: Ultrasound of the thyroid showed a mixed solid cystic isoechoic nodule measuring 3.4 cm in the right lower lobe, labeled as TR 2. Another 2.6 cm predominantly solid isoechoic nodule in the left mid lobe, labeled as TR 3. 10/05/2023: FNA of the left thyroid nodule with benign cytology [place] category 2. 07/17/2024: Repeat thyroid ultrasound shows again right mid/inferior 3.3 cm cystic lesion, left superior 0.8 cm solid, hypoechoic TR 4 nodule and a left mid/inferior 2.8 cm TR 4 category solid, isoechoic nodule with macrocalcifications. I explained that it is common to have thyroid nodules. About 95% of the time these nodules are benign. However if the nodule is > 1 cm in size or suspicious on ultrasound then a fine need aspiration biopsy is recommended. I reviewed the images of her most recent ultrasound in July 2024 myself, in the right mid/inferior 3 cm cystic lesion does not meet criteria for FNA. The left mid/inferior 2.8 cm lesion has been biopsied in September 2023 which was benign. Given this is labeled as TR 4, would need follow up in 1 year. Plan: -ordered repeat thyroid ultrasound to be done in July 2025 - follow up with the ENT with regards to the postauricular lymphadenopathy -follow up with me in 09/01 to discuss ultrasound results Plan See above Patient Instructions: Do thyroid Ultrasound July 2025 and follow up in August 2025 See obgyn Make sure you are getting periods at least every 2 months Protein 1 g/kg Fiber 24 g daily Coding Level of Care Code Est Pt Level 3 (97198) Diagnoses Irregular menses N92.6 Multinodular goiter E04.2
== END 2024-08-14 13:15 | disposition home or self-care (01) ==
PROVIDERS: Visit Provider Student in an Organized Health Care Education/Training Program
DX: N92.6 Irregular menstruation, unspecified (principal); E04.2 Nontoxic multinodular goiter
CPT/HCPCS: 99213